=== PATIENT | male | born 1960 | race Caucasian/White ===

== ENCOUNTER 2022-02-17 15:59 | Outpatient (CLI) | payer MEDICARE, SELFPAY ==
[2022-02-17 19:53] LABS: Chloride* 99 mmol/L (96-114)
[2022-02-17 19:54] LABS: Potassium* 4.7 mmol/L (3.6-5.1); Sodium* 133 mmol/L (135-149)
[2022-02-17 19:56] LABS: Creatinine* 0.6 mg/dL (0.5-1.5); Estimated Glomerular Filt Rate 111 ml/min
[2022-02-17 19:57] LABS: Blood Urea Nitrogen* 9 mg/dL (7-30); Calcium* 9.5 mg/dL (8.4-10.6); Carbon Dioxide* 28 mmol/L (20-32); Glucose* 95 mg/dL (60-115)
== END 2022-02-17 16:00 | disposition home or self-care (01) ==
LOC: LONREF 15:59
PROVIDERS: PCP Family Medicine; Visit Provider Family Medicine
DX: I10 Essential (primary) hypertension (principal)
CPT/HCPCS: 80048

== ENCOUNTER 2023-02-08 09:30 | Outpatient (CLI) | payer MEDICARE, SELFPAY | END 2023-02-08 09:31 | disposition home or self-care (01) | PROVIDERS: PCP Family Medicine; Visit Provider Family Medicine | DX: I10 Essential (primary) hypertension (principal); E78.5 Hyperlipidemia, unspecified; Z12.5 Encounter for screening for malignant neoplasm of prostate | CPT/HCPCS: 80048; 80061; 84153 ==

== ENCOUNTER 2023-08-22 13:37 | Emergency (ER) | payer MEDICARE, SELFPAY ==
[2023-08-22 13:40] VITALS: BP 145/91; PULSE 112; RESP 24; TEMP 36.9; O2SAT 95; BMI 22.6
--- NOTE | 2023-08-22 14:18 | XR_ITS ---
Patient: RAAD AL Facility:?[facility] Patient ID:?[id number] Site Patient ID:?[id number]. Site :?[id number] Study:?XRay-Chest 2 View-08/22/2023 3:17:07 PM Ordering Physician:Zena Guerrero Final Report: Indication: Pneumonia and shortness of breath Technique: Chest 2 views Comparison: Chest x-ray 12/09/2016 Findings/Impression: Cardiovascular and mediastinum: Normal heart size with atherosclerotic calcification. Some prominence of the ascending aortic questioned on the lateral view. Chest CT can be considered for further characterization. Lungs and pleural spaces: Mild hyperinflation with flattening of the hemidiaphragms with diffuse reticular interstitial prominence favor interstitial pneumonia over pulmonary edema. Trace left pleural thickening versus pleural effusion. Bones and soft tissues: Status post median sternotomy. Dictated by Andre La MD @ 08/22/2023 3:30:23 PM Signed by:?Andre La MD @08/22/2023 3:30:23 PM (Electronic Signature)
--- NOTE | 2023-08-22 14:26 | ED_ITS ---
HPI - General Adult General Chief complaint: Shortness of Breath/Dyspnea Stated complaint: Pneumonia--shortness of breath Time Seen by Provider: 08/22/23 13:50 Source: patient, RN notes reviewed and old records reviewed Mode of arrival: ambulatory Limitations: no limitations History of Present Illness HPI narrative: Patient is a 62-year-old male, smoker, who developed cough about 9 days ago. He had seen his primary clinic a few days after the cough started for a regular visit, and was prescribed prednisone and azithromycin to treat bronchitis. He has completed those as of yesterday, did not feel that they were particularly helpful and continues to have cough and shortness of breath. This is preventing him from sleeping well which is his primary complaint at this time. He has not run fevers. He has not had chest pain, leg swelling, vomiting, rashes or other complaints. He does continue to smoke. His came down with the same types of symptoms a couple days after him. Neither of them have had any viral testing. Related Data Home Medications Medication Instructions Recorded Confirmed food supplemt, lactose-reduced 1 ea PO DAILY 02/17/22 08/22/23 (Ensure oral liquid) ibuprofen 200 mg tablet 600 mg PO TID PRN 02/17/22 08/22/23 loperamide 2 mg capsule 2 mg PO TID PRN 02/17/22 08/22/23 nitroglycerin 0.4 mg sublingual 0.4 mg sublingual Q5-15M PRN 02/17/22 08/22/23 tablet omeprazole 20 mg capsule,delayed 20 mg PO DAILY 02/17/22 08/22/23 release fexofenadine-pseudoephedrine ER 1 tab PO QAM 08/18/22 08/22/23 180 mg-240 mg tablet,ext.release 24 hr (Toshia-D 24 Hour) aspirin 81 mg tablet,delayed 81 mg PO QDAY 02/08/23 08/22/23 release (Adult Aspirin Regimen) Previous Rx's Medication Instructions Recorded lisinopril 20 mg tablet 20 mg PO DAILY #90 tabs 02/08/23 metoprolol tartrate 50 mg tablet 75 mg (1.5 x 50 mg) PO BID #270 02/08/23 tabs simvastatin 40 mg tablet 40 mg PO .Bedtime #90 tabs 02/08/23 azithromycin 250 mg tablet See Rx Instructions PO .COMPLEX #6 08/17/23 tabs oxycodone-acetaminophen 5 mg-325 1 tab PO Q8H PRN pain #60 tabs 08/17/23 mg tablet prednisone 20 mg tablet 40 mg (2 x 20 mg) PO QDAY #10 tabs 08/17/23 Allergies Allergy/AdvReac Type Severity Reaction Status Date / Time varenicline Allergy Unknown Verified 08/22/23 13:45 Review of Systems Status of ROS: Reports: 10 or more systems reviewed and unremarkable except as noted in History and below PFSH PFS Surgical History S/P cataract extraction ?Z98.49 - Cataract extraction status, unspecified eye (ICD-10) Status post double vessel coronary artery bypass ?Z95.1 - Presence of aortocoronary bypass graft (ICD-10) Status post cervical spinal arthrodesis ?Z98.1 - Arthrodesis status (ICD-10) Social History What is your current living situation?: I presently have a place to live Problems where you live: no known problems In the past 12 months, utilities in danger of being shut off: no In past 12 months, lack of transportation kept you from medical appts, meetings, work, or getting things needed for daily living: no In the past 12 mos, have been you worried that your food would run out before you had money to buy more?: never true In the past 12 mos, the food you bought just didn't last and you didn't have money to buy more?: never true Smoking Status: Current every day smoker How often do you have a drink containing alcohol: 4 or more times a week AUDIT-C Alcohol total score: 4 Non-prescribed substance use: denies use How often does anyone, including family, friends and others, physically hurt you : never How often does anyone, including family, friends and others, insult or talk down to you: never How often does anyone, including family, friends and others, threaten you with harm: never How often does anyone, including family, friends and others, scream or curse at you: never Little interest or pleasure in doing things: not at all Feeling down, depressed, or hopeless: not at all Exam Narrative: Exam Narrative: Vital signs as noted above. In general, an alert, nontoxic male. Looks older than his stated age. Head: Normocephalic, atraumatic. Eyes: Pupils are equal reactive. Extraocular movements are full. Conjunctivae are normal. ENT: Mucous membranes are little dry. Neck: Supple without lymphadenopathy. Heart: Mildly tachycardic, regular. No significant murmur. Lungs: Breath sounds are slightly decreased, there is no active wheezing, no increased work of breathing. Abdomen: Soft and nontender. No organomegaly. Extremities: Well perfused. No edema. No calf tenderness. Pulses intact. Neurologic: Patient is alert and oriented to person and place. Speech is fluent. Face is symmetric. Moves all extremities equally. Affect: Normal. Skin: Warm and dry. Well perfused. Const: Vital Signs, click to edit/add: Vital Signs - 24 hr 08/22/23 13:40 Temperature 98.4 F Pulse Rate [Pulse Oximeter] 112 H Respiratory Rate 24 Blood Pressure [Ri ght Upper Arm] 145/91 H Pulse Oximetry 95 Oxygen Delivery Me thod Room Air Documenting provider has reviewed patient's vital signs: yes Course Course ED Course: Patient had a chest x-ray read as follows by Radiology:Findings/Impression: Cardiovascular and mediastinum: Normal heart size with atherosclerotic calcification. Some prominence of the ascending aortic questioned on the lateral view. Chest CT can be considered for further characterization. Lungs and pleural spaces: Mild hyperinflation with flattening of the hemidiaphragms with diffuse reticular interstitial prominence favor interstitial pneumonia over pulmonary edema. Trace left pleural thickening versus pleural effusion. Bones and soft tissues: Status post median sternotomy. His white blood cell count was elevated at 16.3, he has been on recent prednisone which may be affecting this number. Hemoglobin was 12.3. He has a left shift with 83% neutrophils. Metabolic panel was notable for a sodium of 123. Review of his records shows his last sodium was 133 at the end of last year. Azithromycin recently may have contributed to some of his hyponatremia. Potassium is slightly low at 3.2 as well. His CRP is elevated at 30, viral swab positive for influenza A. I have discussed all these results with him. He is oxygenating well, is not showing signs of significant bronchospasm but is a smoker. Reviewed symptoms of hyponatremia with him, he really does not endorse any symptoms, aside from feeling a little bit weak, but this may be multifactorial. Recommended admission given pneumonia plus hyponatremia but he would rather go home. As such, I have made a follow-up appointment for him tomorrow at 12:45 p.m. with his clinic so that his sodium can be rechecked as well as oximetry etcetera. In the meantime, will treat with doxycycline for community-acquired pneumonia, I have asked him to limit free water, stick with fluids that contain electrolytes. He does not appear to be on any medications which should contribute to ongoing hyponatremia. If at any time he develops worsening weakness, confusion, somnolence, muscle cramps etcetera he should come back. Likewise, worsening respiratory symptoms, high fevers, vomiting chills etcetera return at any time to the emergency department. Vital Signs Vital signs: Initial Vital Signs Temperature 98.4 F 08/22/23 13:40 Temperature Source Temporal Artery Scan 08/22/23 13:40 Pulse Rate 112 H 08/22/23 13:40 Respiratory Rate 08/22/23 13:40 Blood Pressure 145/91 H 08/22/23 13:40 Blood Pressure Mean 109 H 08/22/23 13:40 Blood Pressure Position Sitting 08/22/23 13:40 Pulse Oximetry 08/22/23 13:40 Oxygen Delivery Method Room Air 08/22/23 13:40 Vital Signs Temperature 98.4 F 08/22/23 13:40 Pulse Rate 112 H 08/22/23 13:40 Respiratory Rate 24 08/22/23 13:40 Blood Pressure 145/91 H 08/22/23 13:40 Pulse Oximetry 08/22/23 13:40 Oxygen Delivery Method Room Air 08/22/23 13:40 Temperature 98.4 F 08/22/23 13:40 Pulse Rate 112 H 08/22/23 13:40 Respiratory Rate 24 08/22/23 13:40 Blood Pressure 145/91 H 08/22/23 13:40 Pulse Oximetry 08/22/23 13:40 Oxygen Delivery Method Room Air 08/22/23 13:40 Medical Decision Making Lab Data Labs: Lab Results 08/22/23 08/22/23 Range/Units 14:02 14:30 WBC 16.29 H (4.50-11.00) K/uL RBC 3.85 L (4.30-5.90) m/uL Hgb 12.3 L (13.5-17.5) gm/dL Hct 34.6 L (37.0-53.0) % MCV 90 (80-100) fL MCH 32 (26-34) pg MCHC 36 (32-36) gm/dL RDW Coeff of Makayla 12.8 (11.5-15.5) % Plt Count 284 (140-440) K/uL Neut % (Auto) 83.6 H (42.0-72.0) % Lymph % (Auto) 4.4 L (20-44) % [place] % (Auto) 8.8 (0.0-11.0) % Eos % (Auto) 0.0 (0.0-7.0) % Baso % (Auto) 0.1 (0.0-3.0) % Neut # (Auto) 13.60 H (1.7-7.0) K/uL Lymph # (Auto) 0.70 L (0.90-2.90) K/uL [place] # (Auto) 1.40 H (0.00-0.90) K/UL Eos # (Auto) 0.00 (0.00-0.50) K/uL Baso # (Auto) 0.00 (0.00-0.30) K/uL Abs Immat Gran (auto) 0.50 H (0.00-0.30) K/uL Imm/Tot Granulo (auto) 3.1 % Diff Slide Review Acceptable Review (Acceptable) Sodium 123 L* (135-149) mmol/L Potassium 3.2 L (3.6-5.1) mmol/L Chloride 91 L (96-114) mmol/L Carbon Dioxide 27 (20-32) mmol/L Anion Gap 5 L (7-15) mEq/L BUN 15 (7-30) mg/dL Creatinine 0.6 (0.5-1.5) mg/dL Estimated Creat Clear 76.15 Estimated GFR 110 ml/min Glucose 120 H (60-115) mg/dL Calcium 8.6 (8.4-10.6) mg/dL C-Reactive Protein 29.9 H (0.5-1.0) mg/dL SARS-CoV-2 (PCR) Negative SARS-CoV-2 (Negative) Influenza Type A (PCR) POSITIVE PCR FLU A A (Negative) Influenza Type B (PCR) Negative PCR FLU B (Negative) RSV (PCR) Negative PCR RSV (Negative) Discharge Plan Discharge Clinical Impression: Influenza A, Pneumonia, Chronic hyponatremia Patient Disposition: Home, Self-Care Condition: Stable Instructions: Hyponatremia (ED), Community Acquired Pneumonia (DC) Additional Instructions: Antibiotic and prednisone as prescribed. I would recommend that you limit your free water intake, try to stick with fluids that have electrolytes in them such as Gatorade, propel etcetera. I have made an appointment for you tomorrow at 12:[address] Tabor in clinic, and sodium should be rechecked at that time. If at any point you developed significant weakness, confusion, difficulty walking, or other significant changes, return to the emergency department. Likewise, high fevers, significant difficulty breathing or other worsening, return to the ER. Prescriptions: No Action fexofenadine-pseudoephedrine [Toshia-D 24 Hour] 180-240 mg tablet extended release 24 hr 1 tab PO QAM aspirin [Adult Aspirin Regimen] 81 mg tablet,delayed release (DR/EC) 81 mg PO QDAY lisinopril 20 mg tablet 20 mg PO DAILY Qty: 90 3RF metoprolol tartrate 50 mg tablet 75 mg PO BID Qty: 270 3RF simvastatin 40 mg tablet 40 mg PO .Bedtime Qty: 90 3RF azithromycin 250 mg tablet See Rx Instructions PO .COMPLEX Qty: 6 0RF Rx Instructions: For 250 mg dose pack: take 500 mg today (day 1), then 250 mg for 4 days (days 2-5) PO oxycodone-acetaminophen 5-325 mg tablet 1 tab PO Q8H PRN (Reason: pain) Qty: 60 0RF prednisone 20 mg tablet 40 mg PO QDAY Qty: 10 0RF ibuprofen 200 mg tablet 600 mg PO TID PRN Ensure Liquid 1 ea PO DAILY nitroglycerin 0.4 mg tablet, sublingual 0.4 mg sublingual Q5-15M PRN Rx Instructions: PRN CHEST PAIN loperamide 2 mg capsule 2 mg PO TID PRN omeprazole 20 mg capsule,delayed release(DR/EC) 20 mg PO DAILY Follow Up/Referrals: Tavo Tabor MD [Primary Care Provider] - Stand Alone Forms: My[facility] Info Instructions
[2023-08-22 14:47] LABS: Basophils Percent Auto 0.1 % (0.0-3.0); Hematocrit 34.6 % (37.0-53.0); Hemoglobin* 12.3 gm/dL (13.5-17.5); Immature Granulocytes Pct Auto 3.1 %; Lymphocytes Percent Auto 4.4 % (20-44); Mean Corpuscular HGB Conc 36 gm/dL (32-36); Mean Corpuscular Hemoglobin 32 pg (26-34); Mean Corpuscular Volume 90 fL (80-100); Monocytes Percent Auto 8.8 % (0.0-11.0); Neutrophils Percent Auto 83.6 % (42.0-72.0); Platelet Count* 284 K/uL (140-440); RDW Coefficient of Variation % 12.8 % (11.5-15.5); Red Blood Count 3.85 m/uL (4.30-5.90); White Blood Count* 16.29 K/uL (4.50-11.00)
[2023-08-22 14:56] LABS: PCR FLU A POSITIVE PCR FLU A (Negative); PCR FLU B Negative PCR FLU B (Negative); PCR RSV Negative PCR RSV (Negative); SARS PCR* Negative SARS-CoV-2 (Negative)
[2023-08-22 15:07] LABS: Chloride* 91 mmol/L (96-114); Potassium* 3.2 mmol/L (3.6-5.1)
[2023-08-22 15:10] LABS: Anion Gap 5 mEq/L (7-15); Blood Urea Nitrogen* 15 mg/dL (7-30); Carbon Dioxide* 27 mmol/L (20-32); Creatinine* 0.6 mg/dL (0.5-1.5); Est. Creatinine Clearance* 76.15; Estimated Glomerular Filt Rate 110 ml/min
[2023-08-22 15:11] LABS: Calcium* 8.6 mg/dL (8.4-10.6); Glucose* 120 mg/dL (60-115)
[2023-08-22 15:20] LABS: Slide Review Reflex Yes
[2023-08-22 15:31] LABS: Sodium* 123 mmol/L (135-149)
[2023-08-22 15:38] LABS: Slide Review Acceptable Review (Acceptable)
[2023-08-22 15:45] LABS: C Reactive Protein* 29.9 mg/dL (0.5-1.0)
== END 2023-08-22 16:47 | disposition home or self-care (01) ==
PROVIDERS: Emergency Provider Emergency Medicine; PCP Family Medicine
DX: J09.X2 Influenza due to identified novel influenza A virus with other respiratory manifestations (principal); J18.9 Pneumonia, unspecified organism; E87.1 Hypo-osmolality and hyponatremia
CPT/HCPCS: 36415; 71046; 80048; 85025; 86140; 87631; 93005; 99284

== ENCOUNTER 2024-01-30 11:36 | Outpatient (CLI) | payer MEDICARE, SELFPAY | END 2024-01-30 11:37 | disposition home or self-care (01) | LOC: LKVREF 11:39 | PROVIDERS: PCP Family Medicine; Visit Provider Family Medicine | DX: E78.5 Hyperlipidemia, unspecified (principal); E87.1 Hypo-osmolality and hyponatremia; R05.9 Cough, unspecified; Z13.89 Encounter for screening for other disorder | CPT/HCPCS: 80061 ==

== ENCOUNTER 2024-02-09 13:33 | Outpatient (CLI) | payer MEDICARE, SELFPAY ==
--- NOTE | 2024-02-09 14:00 | CRLHL7_ITS ---
For Patients: As a result of the Century Cures Act, medical imaging exams and procedure reports are released immediately into your electronic medical record. You may view this report before your referring provider. If you have questions, please contact your health care provider. INDICATION: Chronic cough. History of smoking. TECHNIQUE: CT chest was acquired with 72 cc Isovue 370 IV contrast. COMPARISON: None. FINDINGS: Lungs and pleura: Moderate upper lobe predominant centrilobular and paraseptal emphysema. Scattered calcified pleural plaques. Scattered small bands scarring. No suspicious nodule or airspace consolidation. No pleural effusion or pneumothorax. Heart and vasculature: Heart size is normal. Thoracic aorta and pulmonary artery are normal in caliber.Status post sternotomy and CABG. Mild-moderate aortic atherosclerosis. Lymph nodes/mediastinum: No mediastinal, hilar, or axillary adenopathy. Chest wall: No masses. Upper abdomen: Heterogeneously enhancing left adrenal mass measuring 4.7 x 5.9 centimeters. Indeterminate lobular 1.7 x 3.4 centimeter low-density lesion with central calcification abutting the spleen (series 2, image 91) Bones: Unremarkable for age. IMPRESSION: 1. Moderate emphysema. 2. Scattered calcified pleural plaques, suspicious for asbestos exposure 3. Indeterminate density 4.7 x 5.9 centimeter left adrenal mass. Recommend further characterization with adrenal protocol CT. 4. Indeterminate 1.7 x 3.4 centimeter lobular low-density lesion with central calcification abutting the spleen. This is probably benign given central calcification, but is indeterminate Please note that all CT scans at this facility use dose modulation, iterative reconstruction, and/or weight-based dosing when appropriate to reduce radiation dose to as low as reasonably achievable. Dictated by Silvestre Schmid MD @ 02/13/2024 7:39:54 AM (Electronically Signed)
[2024-02-09 14:26] LABS: Creatinine* 0.6 mg/dL (0.5-1.5); Estimated Glomerular Filt Rate 109 ml/min
== END 2024-02-09 13:34 | disposition home or self-care (01) ==
LOC: CT 13:34
PROVIDERS: PCP Family Medicine; Visit Provider Family Medicine
DX: R05.3 Chronic cough (principal); J43.9 Emphysema, unspecified; E27.9 Disorder of adrenal gland, unspecified; D73.89 Other diseases of spleen; Z72.0 Tobacco use
CPT/HCPCS: 36415; 71260; 82565; Q9967

== ENCOUNTER 2024-02-21 09:34 | Outpatient (CLI) | payer MEDICARE, SELFPAY ==
--- NOTE | 2024-02-21 10:00 | CRLHL7_ITS ---
For Patients: As a result of the Century Cures Act, medical imaging exams and procedure reports are released immediately into your electronic medical record. You may view this report before your referring provider. If you have questions, please contact your health care provider. Indication: Adrenal mass Technique: Noncontrast and postcontrast CT of the abdomen performed using adrenal protocol. Portal venous and 15 minutes delayed post-contrast images acquired. 82 cc of Isovue 370 intravenous contrast administered. Please note that all CT scans at this facility use dose modulation, iterative reconstruction, and/or weight-based dosing when appropriate to reduce radiation dose to as low as reasonably achievable. Comparison: CT chest 02/09/2024 Findings: Heterogeneous circumscribed left adrenal mass measures 4.9 x 5.1 cm. Precontrast Hounsfield units 29.9. Portal venous phase postcontrast Hounsfield units 57.9. 15 minute delayed post-contrast Hounsfield units 52.7. Right adrenal gland normal. Emphysematous changes in the lung bases. Scarring at the left anterior lung base with associated pleural thickening and pleural calcifications. No pleural effusion. Fatty liver. Hyperdense stone in the gallbladder measures 1.4 cm. Renal cortical atrophy involving the lower pole of the right kidney. No hydronephrosis. Left kidney normal. Coarse dystrophic calcifications between the stomach and spleen with surrounding fluid, likely incidental. Pancreas normal. Atherosclerotic changes. No bowel obstruction. Impression: Circumscribed heterogeneous left adrenal mass with less than 50 percent washout. This is not a benign adenoma. Further evaluation with either percutaneous biopsy or MRI recommended. Please note that all CT scans at this facility use dose modulation, iterative reconstruction, and/or weight-based dosing when appropriate to reduce radiation dose to as low as reasonably achievable. Dictated by Ky Escalante MD @ 02/22/2024 11:33:51 AM (Electronically Signed)
== END 2024-02-21 09:35 | disposition home or self-care (01) ==
LOC: CT 09:35
PROVIDERS: PCP Family Medicine; Visit Provider Family Medicine
DX: E27.8 Other specified disorders of adrenal gland (principal)
CPT/HCPCS: 74170; Q9967

== ENCOUNTER 2024-03-06 08:44 | Outpatient (CLI) | payer MEDICARE, SELFPAY ==
--- NOTE | 2024-03-06 08:45 | CRLHL7_ITS ---
For Patients: As a result of the Century Cures Act, medical imaging exams and procedure reports are released immediately into your electronic medical record. You may view this report before your referring provider. If you have questions, please contact your health care provider. INDICATION: Follow-up adrenal mass TECHNIQUE: 1.5 T MRI of the performed with pre and postcontrast T1 weighted imaging; T2 weighted imaging; diffusion weighted imaging; in and out of phase imaging. 12.5 mL Dotarem administered COMPARISON: CT abdomen 02/21/[address] 02/09/2024 FINDINGS: Lungs: The lung bases are clear. No pleural or pericardial effusion. Liver: Homogeneous liver parenchyma. No hepatic masses. There is signal dropout of the hepatic parenchyma on out of phase imaging. Biliary tree and gallbladder: No intra or extrahepatic biliary dilation. Cholelithiasis Spleen: Unremarkable. Partially calcified lesion adjacent to the spleen is similar in size compared to CT from 02/09/2024 measuring up to 3.4 cm, and not well evaluated on this study. Pancreas: Normal pancreatic parenchyma. No pancreatic masses. No pancreatic duct dilation. Adrenal glands: Well-circumscribed cystic and solid left adrenal mass measuring 4.4 x 5.4 cm, with heterogeneous areas of enhancement and diffusion restriction. This mass is slightly decreased in size compared to CT from 02/09/2024 where it measured 4.7 x 5.9 cm. There is signal dropout on out of phase imaging suggestive of intravoxel fat, although no definite evidence of internal hemorrhage. This lesion abuts the pancreatic tail and anterior left kidney Kidneys and ureters: No renal masses or hydronephrosis. GI tract: No evidence of obstruction or inflammation. Vasculature: The IVC and aorta are patent. No abdominal aortic aneurysm. Lymph nodes: No lymphadenopathy. Abdominal wall: Unremarkable Bones: Bone marrow signal is within normal limits. IMPRESSION: 1. Large heterogeneously enhancing left adrenal mass, with likely central areas of necrosis, is slightly decreased in size compared to CT from 02/09/2024. This mass remains indeterminate and further evaluation with PET-CT or tissue sampling can be performed. Please correlate with adrenal function labs. 2. Hepatic steatosis. Dictated by Brandy Zeng MD @ 03/06/2024 3:43:47 PM (Electronically Signed)
== END 2024-03-06 08:45 | disposition home or self-care (01) ==
LOC: MRI 08:46
PROVIDERS: PCP Family Medicine; Visit Provider Family Medicine
DX: E27.8 Other specified disorders of adrenal gland (principal); K76.0 Fatty (change of) liver, not elsewhere classified
CPT/HCPCS: 74183; A9575

== ENCOUNTER 2024-04-02 08:15 | Outpatient (CLI) | payer MEDICARE, SELFPAY | END 2024-04-02 08:16 | disposition home or self-care (01) | LOC: NFLDREF 04-04 07:03 | PROVIDERS: PCP Family Medicine; Referring Provider Family Medicine; Visit Provider Family Medicine | DX: E27.8 Other specified disorders of adrenal gland (principal) | CPT/HCPCS: 82533 ==

== ENCOUNTER 2024-04-11 08:30 | Outpatient (CLI) | payer MEDICARE, SELFPAY | END 2024-04-11 08:31 | disposition home or self-care (01) | LOC: NFLDREF 04-15 19:54 | PROVIDERS: PCP Family Medicine; Referring Provider Family Medicine; Visit Provider Family Medicine | DX: E27.8 Other specified disorders of adrenal gland (principal) | CPT/HCPCS: 83835 ==

== ENCOUNTER 2025-02-08 14:46 | Outpatient (CLI) | payer MEDICARE, SELFPAY | END 2025-02-08 14:47 | disposition home or self-care (01) | PROVIDERS: PCP Family Medicine; Visit Provider Family Medicine | DX: R53.83 Other fatigue (principal); Z12.5 Encounter for screening for malignant neoplasm of prostate | CPT/HCPCS: 80053; 82607; 84443; G0103 ==